=== PATIENT | male | born 2000 | race Caucasian/White ===

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

== ENCOUNTER 2022-02-08 20:22 | Emergency (ER) | payer MEDICAID ==
[~2022-02-08] VITALS: Ht 178 cm; Wt 62.5 kg
[~2022-02-08 20:22] MED LIST changes: -OMEP-280 PO; +OMEP20CA18 PO
[2022-02-08 20:31] VITALS: BP 128/74
[2022-02-08] MEDS ORDERED: MELO15TA39 (20:37)
--- NOTE | 2022-02-08 20:53 | ED General ---
General Chief Complaint: Chest Wall Stated Complaint: POSS BROKEN RIBS Nursing Triage Note: C/O POSSIBLE RIGHT RIB FX X1 WEEK. STATES WOKE UP WITH BILATERAL LATERAL UPPER ABDOMINAL PAIN. DENIES INJURY. Source of Information: Patient Exam Limitations: No Limitations (ETHAN TAYLOR APRN) History of Present Illness Date Seen by Provider: Feb 08, 2022 Time Seen by Provider: 20:49 Initial Comments tO ER by mother with c/o right anterior lower rib pain and a new bulge. Pain is worsened by movement, deep breathing. no cough. Does feel a little short of breath. Mother states they went to [facility] but "all they did was give us motrin and send us home". There was no injury yet she's convinved a rib is broken. Normal appetiite. He has not been taking anythig for the pain. Timing/Duration: 1-2 Days Severity: Moderate Associated Systoms: Denies Symptoms (ETHAN TAYLOR APRN) Allergies and Home Medications Allergies Coded Allergies: No Known Drug Allergies (Unverified , 04/12/10) Patient Home Medication List Home Medication List Reviewed: Yes (ETHAN TAYLOR APRN) Meloxicam (Meloxicam) 15 Mg Tablet, (Reported) Entered as Reported by: ASIF VOSS on 02/08/222036 Last Action: New Order Meloxicam (Meloxicam) 15 Mg Tablet, 15 MG PO DAILY Prescribed by: ETHAN TAYLOR on 02/08/222115 Discontinued Medications Amoxicillin (Amoxicillin) 500 Mg Capsule, 500 MG PO TID Discontinued Reason: No Longer Taking Prescribed by: ETHAN TAYLOR on 03/19/18 1605 Last Action: Discontinued Cyproheptadine Hcl (Periactin) 4 Mg Tablet, 1 EACH PO HS, (Reported) Discontinued Reason: No Longer Taking Entered as Reported by: EDGAR FOSTER on 01/10/13 0226 Last Action: Discontinued Diphenhydramine Hcl (Diphenhydramine 25 Mg) 25 Mg Tablet, 1 TAB PO PRN, (Re ported) Discontinued Reason: No Longer Taking Entered as Reported by: BON ARMENDARIZ on 04/03/122114 Last Action: Discontinued Hydrocodone Bit/Acetaminophen (Lortab 5 Mg Tablet) 1 Each Tablet, 1 EACH PO Q6H PRN for PAIN Discontinued Reason: No Longer Taking Prescribed by: HOOD NEWMAN on 12/10/16 0044 Last Action: Discontinued Hydrocodone/Acetaminophen (Hydrocodone/Acetaminophen 5 MG/325 MG TAB) 1 Each Tablet, 1 EACH PO Q4H PRN for PAIN-MODERATE TO SEVERE Discontinued Reason: No Longer Taking Prescribed by: ETHAN TAYLOR on 03/19/18 1605 Last Action: Discontinued Hydrocortisone (Cortizone-10 Plus) 28 Gm Cream.gm., 1 APPLIC TD PRN, (Reported) Discontinued Reason: No Longer Taking Entered as Reported by: BON ARMENDARIZ on 04/03/122114 Last Action: Discontinued Lisdexamfetamine Dimesylate (Vyvanse) 30 Mg Capsule, 1 TAB PO DAILY, (Reported) Discontinued Reason: No Longer Taking Entered as Reported by: BON ARMENDARIZ on 04/03/122114 Last Action: Discontinued Omeprazole (Omeprazole) 20 Mg Capsule.dr, 20 MG PO DAILY Discontinued Reason: No Longer Taking Prescribed by: PATY LOPEZ on 02/27/192312 Last Action: Discontinued Ondansetron Hcl (Zofran Oral Dissolve) 4 Mg Tab, 4 MG PO Q4H Discontinued Reason: No Longer Taking Prescribed by: ONEL CHAUDHRY on 01/10/13 0244 Last Action: Discontinued Polyethylene Glycol 3350 (Miralax) 17 Gm Powd.pack, 17 GM PO DAILY PRN PRN for CONSTIPATION-1ST LINE Discontinued Reason: No Longer Taking Prescribed by: PATY LOPEZ on 02/27/192312 Last Action: Discontinued Prednisone (Prednisone) 20 Mg Tab, 20 MG PO DAILY Discontinued Reason: No Longer Taking Prescribed by: NICHOLE AGUIRRE on 04/03/122222 Last Action: Discontinued Review of Systems Review of Systems Constitutional: see HPI EENTM: see HPI Respiratory: no symptoms reported Cardiovascular: no symptoms reported Genitourinary: no symptoms reported Musculoskeletal: no symptoms reported Skin: no symptoms reported Psychiatric/Neurological: No Symptoms Reported Hematologic/Lymphatic: No Symptoms Reported Immunological/Allergic: no symptoms reported (ETHAN TAYLOR APRN) Past Aimddgx-Rizbvj-Yxzftx Hx Patient Social History Tobacco Use?: No Substance use?: No Alcohol Use?: No Pt feels they are or have been: No (ETHAN TAYLOR APRN) Immunizations Up To Date Tetanus Booster (TDap): Less than 5yrs PED Vaccines UTD: Yes (ETHAN TAYLOR APRN) Seasonal Allergies Seasonal Allergies: No (ETHAN TAYLOR APRN) Past Medical History Surgery/Hospitalization HX: RIGHT HAND FX. Surgeries: Yes (R HAND) Orthopedic Respiratory: No Cardiac: No Neurological: No Genitourinary: No Gastrointestinal: No Musculoskeletal: Yes (RIGHT HAND SURGERY) Endocrine: No Cancer: No Psychosocial: Yes (SUBSTANCE ABUSE) ADD/ADHD Integumentary: No Blood Disorders: No Adverse Reaction/Blood Tranf: No (ETHAN TAYLOR APRN) Physical Exam Vital Signs Vital Signs - First Documented 02/08/22 20:31 Temp 36.6 Pulse 81 Resp 16 B/P (MAP) 128/74 (92) Pulse Ox 97 O2 Delivery Room Air (RICHA,ONEL K DO) Vital Signs Capillary Refill : Less Than 3 Seconds (ETHAN TAYLOR APRN) Height, Weight, BMI Height: 5'11.00" Weight: 140lbs. 4oz. [id number]; 19.00 BMI Method:Stated General Appearance: No Apparent Distress, WD/WN, Thin Eyes: Bilateral Eye Normal Inspection, Bilateral Eye PERRL, Bilateral Eye EOMI Neck: Full Range of Motion, Normal Inspection Respiratory: Lungs Clear, Normal Breath Sounds, No Accessory Muscle Use, No Respiratory Distress, Other (lungs clear, good air movement. No tachypnea. Speaks in full sentences. ribs look normal. ) Cardiovascular: Regular Rate, Rhythm, Normal Peripheral Pulses Gastrointestinal: Normal Bowel Sounds, Non Tender, Soft Extremity: Normal Capillary Refill, Normal Inspection Neurologic/Psychiatric: Alert, Oriented x3 (ETHAN TAYLOR APRN) Progress/Results/Core Measures Suspected Sepsis SIRS Temperature: Pulse: 81 Respiratory Rate: 16 Blood Pressure 128 /74 Mean: 92 (ETHAN TAYLOR APRN) Results/Orders Vital Signs/I&O 02/08/22 20:31 Temp 36.6 Pulse 81 Resp 16 B/P (MAP) 128/74 (92) Pulse Ox 97 O2 Delivery Room Air (RICHA,ONEL K DO) Vital Signs/I&O Capillary Refill : Less Than 3 Seconds (ETHAN TAYLOR APRN) Blood Pressure Mean: 92 Departure Communication (Admissions) NAME: GABBYALBERT Stephany MED REC#: [id number] PT STATUS: REG ER : 07/31/1983 PHYSICIAN: ETHAN TAYLOR APRN ADMIT DATE: 02/08/22/ER Signed Date of Exam:02/08/22 KNEE, LEFT, 3 VIEWS CLINICAL HISTORY: Left knee pain. Twisting injury. COMPARISON: 07/13/2017. TECHNIQUE: 3 views of the left knee. FINDINGS: There is no acute fracture or dislocation of the left knee. Alignment is anatomic. The imaged joint spaces are preserved. IMPRESSION: 1. No acute fracture or dislocation in the left knee. Dictated by: Dictated on workstation # [id number] Dict: 02/08/222018 Trans: 02/08/222020 [facility] [id number] Interpreted by: NIGEL FINCH DO Electronically signed by: NIGEL FINCH DO 02/08/222020 (ETHAN TAYLOR APRN) Impression Primary Impression: Costochondritis, acute Disposition: 01 HOME, SELF-CARE Condition: Stable Departure-Patient Inst. Decision time for Depature: 20:53 (ETHAN TAYLOR APRN) Referrals: [facility] [place] (PCP/Family) Primary Care Physician Patient Instructions: Costochondritis Add. Discharge Instructions: 1. Return tO Er for any concerns 2. Use your tylenol as directed in addition to the meloxicam. 3. Follow up with primary care as scheduled. All discharge instructions reviewed with patient and/or family. Voiced understanding. Scripts Meloxicam (Meloxicam) 15 Mg Tablet 15 MG PO DAILY, #14 TAB Prov: ETHAN TAYLOR APRN 02/08/22 ATTENDING PHYSICIAN NOTE: I WAS PHYSICALLY PRESENT ER PHYSICIAN, BUT I WAS NOT INVOLVED IN ANY DECISION MAKING OR ANY CARE OF THIS PATIENT. (ONEL CHAUDHRY DO) Images Torso/Trunk 1 - Tenderness 2 - Tenderness 3 - Tenderness (ETHAN TAYLOR APRN) ETHAN TAYLOR APRN Feb 08, 2022 20:52 ONEL CHAUDHRY DO Feb 09, 2022 03:29
--- NOTE | 2022-02-08 21:02 | Diagnostic Imaging Report ---
Patient History: Chest and rib pain.. Technique: 4 views of the chest and ribs Comparison: 04/12/2010. FINDINGS: The lung volumes are normal. No focal consolidation is seen. No large pleural effusion or pneumothorax is seen. The cardiomediastinal silhouette is normal in size and contour. No acute osseous abnormality is seen. No acute displaced right-sided rib fractures. IMPRESSION: 1. No acute process in the chest. 2. No acute displaced right-sided rib fractures. Dictated by: Dictated on workstation # [id number]
[2022-02-08] MEDS ORDERED: MELO15TA39 PO (21:16)
== END 2022-02-08 21:21 | disposition home or self-care (01) ==
LOC: EDUNIT# 20:22 → ER 20:27
DX: M94.0 Chondrocostal junction syndrome [Tietze] (principal)
CPT/HCPCS: 71101